=== PATIENT | female | born 2000 | race Asian ===

== ENCOUNTER 2020-09-27 09:13 | Emergency (ER) | payer BC ==
[~2020-09-27] VITALS: Ht 162.6 cm; Wt 52.3 kg
[2020-09-27 09:15] VITALS: BP 125/85
[2020-09-27] MEDS ORDERED: POVIDONE-IODINE 10% 120 ML SOLUTION TP ONE (09:45)
[2020-09-27] MEDS ORDERED: BUPIVACAINE HCL/PF 0.25% 10 ML VIAL SQ ONE (09:45)
== END 2020-09-27 10:24 | disposition home or self-care (01) ==
LOC: EMS 09:13
DX: N75.1 Abscess of Bartholin's gland (principal)
CPT/HCPCS: 56420; 99284; J3490